=== PATIENT | male | born 1975 ===

== ENCOUNTER 2019-04-22 19:48 | Emergency (ER) | payer SELFPAY ==
[~2019-04-22] VITALS: Ht 182.9 cm; Wt 127.0 kg
[2019-04-22 19:53] VITALS: BP 151/88
[2019-04-22] MEDS ORDERED: KETOROLAC 30 MG/1 ML ONE (20:09)
[2019-04-22] MEDS ORDERED: DIPH,PERTUSS(ACELL),TET VAC/PF 0.5 ML IM-VACC ONE ×2 (20:09→20:30)
[2019-04-22] MEDS ORDERED: DOXYCYCLINE 100MG TABLET PO ONE (20:30)
[2019-04-22] MEDS ORDERED: CLINDAMYCIN 300 MG CAPSULE PO ONE (20:30)
[2019-04-22] MEDS ORDERED: KETOROLAC 30 MG/1 ML IM ONE (20:30)
[2019-04-22] MEDS ORDERED: CLINDAMYCIN 300 MG CAPSULE ONE (20:36)
[2019-04-22] MEDS ORDERED: DOXYCYCLINE 100MG TABLET ONE (20:36)
== END 2019-04-22 21:13 | disposition home or self-care (01) ==
LOC: ED 21:07
DX: S71.132A Puncture wound without foreign body, left thigh, initial encounter (principal); W54.0XXA Bitten by dog, initial encounter; Y93.01 Activity, walking, marching and hiking; Y92.410 Unspecified street and highway as the place of occurrence of the external cause; Y99.8 Other external cause status
CPT/HCPCS: 73552; 90471; 90715; 96372; 99283; J1885